=== PATIENT | male | born 1950 | race Caucasian/White ===

== ENCOUNTER 2018-01-02 11:11 | Emergency (ER) | payer MEDICARE, OTHER ==
[~2018-01-02] VITALS: Ht 180.3 cm; Wt 108.9 kg
[2018-01-02] MEDS ORDERED: AMLO10 PO (11:47)
[2018-01-02] MEDS ORDERED: HYDCHL25 PO (11:47)
[2018-01-02] MEDS ORDERED: Multivitamin1 EAC2 PO (11:48)
[2018-01-02] MEDS ORDERED: ATOR40TA PO (11:48)
[2018-01-02] MEDS ORDERED: VALSARTAN160 MG PO (11:48)
[2018-01-02] MEDS ORDERED: Zofran Odt4 MG SL (14:05)
[2018-01-02] MEDS ORDERED: Norco 5-325 Ta1 EACH PO (14:05)
== END 2018-01-02 14:43 | disposition home or self-care (01) ==
LOC: ER 11:11
DX: S22.41XA Multiple fractures of ribs, right side, initial encounter for closed fracture (principal); I10 Essential (primary) hypertension; E78.00 Pure hypercholesterolemia, unspecified; Z87.891 Personal history of nicotine dependence; Z88.0 Allergy status to penicillin; Z79.899 Other long term (current) drug therapy; W18.09XA Striking against other object with subsequent fall, initial encounter
CPT/HCPCS: 71101; 71250; 99284

== ENCOUNTER 2019-07-29 17:30 | Observation (INO) | payer MEDICARE, OTHER ==
[~2019-07-29] VITALS: Ht 180.3 cm; Wt 103.4 kg
[~2019-07-29 17:30] MED LIST: AMLO10 PO; ATOR40TA PO; Amox Tr-K Clv1 EAC2 PO; CHOL10002 PO; Fish Oil 10001000 MG PO; HYDCHL25 PO; LORA1 PO; METO25ER PO; Multivitamin1 EAC2 PO; Norco 5-325 Ta1 EACH PO; Omeprazole20 M1 PO; POLY500 PO; Super B Comple150 MG PO; VALSARTAN160 MG PO; VITAMIN B12-FO1 EACH PO; VOLTAREN GEL 1% TOP; Zofran Odt4 MG SL
[2019-07-29 18:57] LABS: BASOPHILS ABSOLUTE AUTO 0.06 K/mm3 (0.00-0.23); BASOPHILS PERCENT AUTO 0 % (0-2); EOSINOPHILS ABSOLUTE AUTO 0.28 K/mm3 (0.00-0.68); EOSINOPHILS PERCENT AUTO 2 % (0-6); Hematocrit 45.1 % (37.0-53.0); Hemoglobin 14.5 g/dL (13.5-17.5); IMMATURE GRAN ABSOLUTE AUTO 0.08 K/mm3 (0.00-0.10); IMMATURE GRAN PERCENT AUTO 1 % (0-1); LYMPHOCYTES ABSOLUTE AUTO 2.06 K/mm3 (0.84-5.20); LYMPHOCYTES PERCENT AUTO 14 % (21-46); MONOCYTES ABSOLUTE AUTO 1.03 K/mm3 (0.16-1.47); MONOCYTES PERCENT AUTO 7 % (4-13); Mean Corpuscular HGB 27.9 pg (26.0-34.0); Mean Corpuscular HGB Conc 32.2 g/dL (31.5-36.5); Mean Corpuscular Volume 87 fL (80-100); Mean Platelet Volume 10.3 fL (9.1-12.4); NEUTROPHILS ABSOLUTE AUTO 11.31 K/mm3 (1.96-9.15); NEUTROPHILS PERCENT AUTO 76 % (41-73); Platelet Count 233 K/mm3 (150-400); RDW Coefficient Variation 13.2 % (11.7-14.2); RDW Standard Deviation 41.8 fL (35.1-46.3); Red Blood Cell Count 5.19 M/mm3 (4.30-5.90); White Blood Cell Count 14.82 K/mm3 (4.00-11.30)
[2019-07-29 19:16] LABS: International Normalized Ratio 1.03; Prothrombin Time Results 10.9 Sec (9.7-11.5)
[2019-07-29 19:21] LABS: Alanine Aminotransfer (ALT/SGP 40 U/L (12-78); Alk Phos 65 U/L (50-136); Anion Gap 7 mmol/L (6-16); Aspartate Aminotrans (AST/SGOT 35 U/L (12-37); Bilirubin, Total 0.6 mg/dL (0.1-1.0); Blood Urea Nitrogen 18 mg/dL (8-24); Bun/Creatinine Ratio 15.4 (12.0-20.0); CO2, Blood 26 mmol/L (21-32); Chloride, Blood 105 mmol/L (98-108); Creatinine, Blood 1.17 mg/dL (0.60-1.20); Globulin, Blood 3.9 g/dL (2.2-4.0); Glomerular Filtration Rate >60 (60-); Glucose, Blood 143 mg/dL (70-99); Potassium, Blood 3.6 mmol/L (3.5-5.5); Sodium, Blood 138 mmol/L (136-145); Total Protein, Blood 7.9 g/dL (6.4-8.2)
[2019-07-29] MEDS ORDERED: LOSARTAN POTAS100 MG PO (21:39)
[2019-07-29] MEDS ORDERED: Aspirin EC81 MG PO (21:54)
[2019-07-29] MEDS ORDERED: Vitamin D2000 UNIT PO (21:55)
[2019-07-29] MEDS ORDERED: CYAN500 PO (21:55)
[2019-07-29] MEDS ORDERED: Fish Oil Conc1000 MG PO (21:55)
[2019-07-30 05:05] LABS: BASOPHILS ABSOLUTE AUTO 0.02 K/mm3 (0.00-0.23); BASOPHILS PERCENT AUTO 0 % (0-2); EOSINOPHILS PERCENT AUTO 0 % (0-6); Hemoglobin 12.9 g/dL (13.5-17.5); IMMATURE GRAN ABSOLUTE AUTO 0.05 K/mm3 (0.00-0.10); IMMATURE GRAN PERCENT AUTO 0 % (0-1); LYMPHOCYTES PERCENT AUTO 8 % (21-46); MONOCYTES ABSOLUTE AUTO 0.84 K/mm3 (0.16-1.47); MONOCYTES PERCENT AUTO 7 % (4-13); Mean Corpuscular HGB 27.9 pg (26.0-34.0); Mean Corpuscular HGB Conc 32.3 g/dL (31.5-36.5); Mean Corpuscular Volume 86 fL (80-100); Mean Platelet Volume 10.4 fL (9.1-12.4); NEUTROPHILS ABSOLUTE AUTO 10.03 K/mm3 (1.96-9.15); NEUTROPHILS PERCENT AUTO 84 % (41-73); Platelet Count 232 K/mm3 (150-400); RDW Coefficient Variation 13.6 % (11.7-14.2); RDW Standard Deviation 42.5 fL (35.1-46.3); Red Blood Cell Count 4.63 M/mm3 (4.30-5.90); White Blood Cell Count 11.94 K/mm3 (4.00-11.30)
[2019-07-30 05:27] LABS: Anion Gap 7 mmol/L (6-16); Blood Urea Nitrogen 23 mg/dL (8-24); Bun/Creatinine Ratio 20.2 (12.0-20.0); CO2, Blood 26 mmol/L (21-32); Calcium, Blood 8.6 mg/dL (8.5-10.1); Chloride, Blood 105 mmol/L (98-108); Creatinine, Blood 1.14 mg/dL (0.60-1.20); Glomerular Filtration Rate >60 (60-); Glucose, Blood 145 mg/dL (70-99); Potassium, Blood 4.2 mmol/L (3.5-5.5); Sodium, Blood 138 mmol/L (136-145)
--- NOTE | 2019-07-30 07:08 | NUR ---
SUMMARY PT SLEPT IN RECLINER HAIR FOR IMPROVED COMFORT. NO C/O SOB. VERB IV SUBLIMAZE EFFECTIVE FOR PAIN CONTROL. VOIDING WITHOUT DIFFICULTY. PT HOPING FOR DISCHAGE HOME TODAY. AT BEDSIDE. SUPPORTIVE.
--- NOTE | 2019-07-30 10:43 | NUR ---
1000 PATIENT REPORTS SLIGHT NUMBNESS TO LEFT HAND POINTER AND MIDDLE FINGER, SHANNEN WRAP LOOSENED AND REAPPLIED WITH RESOLUTION OF NUMBNESS
[2019-07-30] MEDS ORDERED: ACET325 PO (15:11)
[2019-07-30] MEDS ORDERED: DOCU100 PO (15:12)
[2019-07-30] MEDS ORDERED: HYDR1TAB94 PO (15:13)
--- NOTE | 2019-07-30 15:47 | NUR ---
1545 DISCHARGE DISCHARGE TO HOME WITH . PATIENT INSISTENT HE WILL WALK OUT OF HOSPITAL TO CAR AND DECLINES MY OFFER OF A WHEELCHAIR RIDE TO HIS CAR
== END 2019-07-30 15:45 | disposition home or self-care (01) ==
LOC: ER 17:30 → SURS 17:31
PROVIDERS: Physician Assistant; ADMIT Surgery
DX: S22.43XA Multiple fractures of ribs, bilateral, initial encounter for closed fracture (principal); S42.112A Displaced fracture of body of scapula, left shoulder, initial encounter for closed fracture; S32.018A Other fracture of first lumbar vertebra, initial encounter for closed fracture; S32.028A Other fracture of second lumbar vertebra, initial encounter for closed fracture; S01.01XA Laceration without foreign body of scalp, initial encounter; I10 Essential (primary) hypertension; E78.00 Pure hypercholesterolemia, unspecified; Z88.0 Allergy status to penicillin; Z79.899 Other long term (current) drug therapy; Z79.82 Long term (current) use of aspirin; Z87.891 Personal history of nicotine dependence; W11.XXXA Fall on and from ladder, initial encounter
CPT/HCPCS: 12001; 29125; 36415; 70450; 71260; 72125; 73030; 73110; 74177; 80048; 80053; 83690; 85025; 85610; 86850; 86900; 86901; 93005; 93010; 96374-59; 96375-59; 99285-25; A9270-GY; J1650; J1885; J2405; J3010; J7120; L0160; Q9967

== ENCOUNTER 2019-08-17 05:41 | Emergency (ER) | payer MEDICARE, OTHER ==
[~2019-08-17] VITALS: Ht 177.8 cm; Wt 104.3 kg
[~2019-08-17 05:41] MED LIST changes: +ACET325 PO; +Aspirin EC81 MG PO; +CYAN500 PO; +DOCU100 PO; +Fish Oil Conc1000 MG PO; +HYDR1TAB94 PO; +LOSARTAN POTAS100 MG PO; +Vitamin D2000 UNIT PO
[2019-08-17] MEDS ORDERED: ALBU90OI (06:07)
[2019-08-17 06:20] LABS: BASOPHILS ABSOLUTE AUTO 0.07 K/mm3 (0.00-0.23); BASOPHILS PERCENT AUTO 1 % (0-2); EOSINOPHILS ABSOLUTE AUTO 0.36 K/mm3 (0.00-0.68); EOSINOPHILS PERCENT AUTO 5 % (0-6); Hematocrit 38.3 % (37.0-53.0); Hemoglobin 12.4 g/dL (13.5-17.5); IMMATURE GRAN ABSOLUTE AUTO 0.02 K/mm3 (0.00-0.10); IMMATURE GRAN PERCENT AUTO 0 % (0-1); LYMPHOCYTES ABSOLUTE AUTO 2.07 K/mm3 (0.84-5.20); LYMPHOCYTES PERCENT AUTO 26 % (21-46); MONOCYTES ABSOLUTE AUTO 0.67 K/mm3 (0.16-1.47); MONOCYTES PERCENT AUTO 9 % (4-13); Mean Corpuscular HGB 28.5 pg (26.0-34.0); Mean Corpuscular HGB Conc 32.4 g/dL (31.5-36.5); Mean Corpuscular Volume 88 fL (80-100); Mean Platelet Volume 9.2 fL (9.1-12.4); NEUTROPHILS ABSOLUTE AUTO 4.72 K/mm3 (1.96-9.15); NEUTROPHILS PERCENT AUTO 60 % (41-73); Platelet Count 334 K/mm3 (150-400); RDW Coefficient Variation 13.3 % (11.7-14.2); RDW Standard Deviation 43.5 fL (35.1-46.3); Red Blood Cell Count 4.35 M/mm3 (4.30-5.90); White Blood Cell Count 7.91 K/mm3 (4.00-11.30)
[2019-08-17 06:42] LABS: Alanine Aminotransfer (ALT/SGP 26 U/L (12-78); Albumin, Blood 3.3 g/dL (3.4-5.0); Albumin/Globulin Ratio 0.8 (0.8-1.8); Alk Phos 182 U/L (50-136); Anion Gap 6 mmol/L (6-16); Aspartate Aminotrans (AST/SGOT 14 U/L (12-37); Bilirubin, Total 0.5 mg/dL (0.1-1.0); Blood Urea Nitrogen 18 mg/dL (8-24); CO2, Blood 28 mmol/L (21-32); Calcium, Blood 8.7 mg/dL (8.5-10.1); Chloride, Blood 107 mmol/L (98-108); Globulin, Blood 4.1 g/dL (2.2-4.0); Glomerular Filtration Rate >60 (60-); Glucose, Blood 114 mg/dL (70-99); Potassium, Blood 3.9 mmol/L (3.5-5.5); Sodium, Blood 141 mmol/L (136-145); Total Protein, Blood 7.4 g/dL (6.4-8.2); Troponin I <0.015 ng/mL (0.000-0.040)
[2019-08-17] MEDS ORDERED: Zithromax250 MG PO ×2 (07:30→07:35)
== END 2019-08-17 07:44 | disposition home or self-care (01) ==
LOC: ER 05:41
PROVIDERS: Emergency Medicine
DX: J20.9 Acute bronchitis, unspecified (principal); M79.89 Other specified soft tissue disorders; I10 Essential (primary) hypertension; J44.9 Chronic obstructive pulmonary disease, unspecified; D64.9 Anemia, unspecified; Z87.891 Personal history of nicotine dependence; Z88.0 Allergy status to penicillin; Z79.899 Other long term (current) drug therapy; Z79.82 Long term (current) use of aspirin
CPT/HCPCS: 36415; 71046; 80053; 84484; 85025; 93005; 93010; 93971; 99285-25

== ENCOUNTER 2020-03-22 08:47 | Inpatient (IN) | payer MEDICARE, OTHER ==
[~2020-03-22] VITALS: Ht 180.3 cm; Wt 106.1 kg
[~2020-03-22 08:47] MED LIST changes: +ALBU90OI; -AMLO10 PO; -ATOR40TA PO; -Aspirin EC81 MG PO; -CHOL10002 PO; -Fish Oil Conc1000 MG PO; -HYDCHL25 PO; -LORA1 PO; -LOSARTAN POTAS100 MG PO; +Zithromax250 MG PO
[2020-03-22 09:29] LABS: BASOPHILS ABSOLUTE AUTO 0.07 K/mm3 (0.00-0.23); BASOPHILS PERCENT AUTO 1 % (0-2); EOSINOPHILS ABSOLUTE AUTO 0.33 K/mm3 (0.00-0.68); EOSINOPHILS PERCENT AUTO 4 % (0-6); Hematocrit 46.4 % (37.0-53.0); IMMATURE GRAN ABSOLUTE AUTO 0.03 K/mm3 (0.00-0.10); IMMATURE GRAN PERCENT AUTO 0 % (0-1); LYMPHOCYTES ABSOLUTE AUTO 2.15 K/mm3 (0.84-5.20); LYMPHOCYTES PERCENT AUTO 25 % (21-46); MONOCYTES ABSOLUTE AUTO 0.62 K/mm3 (0.16-1.47); MONOCYTES PERCENT AUTO 7 % (4-13); Mean Corpuscular HGB 28.1 pg (26.0-34.0); Mean Corpuscular HGB Conc 32.3 g/dL (31.5-36.5); Mean Corpuscular Volume 87 fL (80-100); Mean Platelet Volume 10.3 fL (9.1-12.4); NEUTROPHILS ABSOLUTE AUTO 5.26 K/mm3 (1.96-9.15); NEUTROPHILS PERCENT AUTO 62 % (41-73); Platelet Count 239 K/mm3 (150-400); RDW Coefficient Variation 13.2 % (11.7-14.2); RDW Standard Deviation 41.9 fL (35.1-46.3); Red Blood Cell Count 5.33 M/mm3 (4.30-5.90); White Blood Cell Count 8.46 K/mm3 (4.00-11.30)
[2020-03-22 09:45] LABS: Alanine Aminotransfer (ALT/SGP 34 U/L (12-78); Albumin, Blood 3.6 g/dL (3.4-5.0); Albumin/Globulin Ratio 0.8 (0.8-1.8); Alk Phos 76 U/L (50-136); Anion Gap 5 mmol/L (6-16); Aspartate Aminotrans (AST/SGOT 27 U/L (12-37); Bilirubin, Total 0.8 mg/dL (0.1-1.0); Blood Urea Nitrogen 15 mg/dL (8-24); Bun/Creatinine Ratio 16.2 (12.0-20.0); CO2, Blood 28 mmol/L (21-32); Calcium, Blood 8.7 mg/dL (8.5-10.1); Chloride, Blood 106 mmol/L (98-108); Creatinine, Blood 0.92 mg/dL (0.60-1.20); Globulin, Blood 4.3 g/dL (2.2-4.0); Glomerular Filtration Rate >60 (60-); Glucose, Blood 117 mg/dL (70-99); Sodium, Blood 139 mmol/L (136-145); Total Protein, Blood 7.9 g/dL (6.4-8.2); Troponin I <0.015 ng/mL (0.000-0.040)
[2020-03-22] MEDS ORDERED: HYDCHL25 PO (12:42)
[2020-03-22] MEDS ORDERED: AMLO5 PO (12:42)
[2020-03-22] MEDS ORDERED: LOSARTAN POTAS100 MG PO (12:42)
[2020-03-22] MEDS ORDERED: ATOR40TA PO (12:42)
[2020-03-22] MEDS ORDERED: FISH OIL CONC1000 M2 PO (13:28)
[2020-03-22] MEDS ORDERED: LORA1 PO (13:28)
[2020-03-22] MEDS ORDERED: Aspirin EC81 MG PO (13:28)
[2020-03-22] MEDS ORDERED: VITAMIN D350 MC2 PO (13:28)
[2020-03-22] MEDS ORDERED: Daily Multiple1 EACH PO (13:29)
== END 2020-03-22 17:42 | disposition home or self-care (01) | DRG 313 ==
LOC: ER 08:47 → PCU 08:48
PROVIDERS: Physician Assistant; ADMIT Hospitalist
DX: R07.89 Other chest pain (principal); R94.31 Abnormal electrocardiogram [ECG] [EKG]; I10 Essential (primary) hypertension; J44.9 Chronic obstructive pulmonary disease, unspecified; E78.00 Pure hypercholesterolemia, unspecified; E78.5 Hyperlipidemia, unspecified; G47.33 Obstructive sleep apnea (adult) (pediatric); I25.10 Atherosclerotic heart disease of native coronary artery without angina pectoris; Z88.0 Allergy status to penicillin; Z79.82 Long term (current) use of aspirin; Z79.899 Other long term (current) drug therapy
CPT/HCPCS: 36415; 71046; 80053; 83880; 84484; 85025; 93005; 93010; 99285-25

== ENCOUNTER → 2020-05-18 | Outpatient (CLI) | payer MEDICARE, OTHER ==
[~2020-05-18] MED LIST changes: +AMLO5 PO; +ATOR40TA PO; +Aspirin EC81 MG PO; +Daily Multiple1 EACH PO; +FISH OIL CONC1000 M2 PO; +HYDCHL25 PO; +LORA1 PO; +LOSARTAN POTAS100 MG PO; +VITAMIN D350 MC2 PO
== END | disposition home or self-care (01) ==
LOC: PLD 07:13 → LAB SHORT 07:13
DX: D11.0 Benign neoplasm of parotid gland (principal)
CPT/HCPCS: 88173

== ENCOUNTER 2024-06-01 09:54 | Emergency (ER) | payer MEDICARE, OTHER ==
[~2024-06-01] VITALS: Ht 180.3 cm; Wt 98.4 kg
[2024-06-01 10:27] LABS: BASOPHILS ABSOLUTE AUTO 0.07 K/mm3 (0.00-0.23); BASOPHILS PERCENT AUTO 1 % (0-2); EOSINOPHILS ABSOLUTE AUTO 0.31 K/mm3 (0.00-0.68); EOSINOPHILS PERCENT AUTO 4 % (0-6); Hematocrit 45.7 % (37.0-53.0); Hemoglobin 14.9 g/dL (13.5-17.5); IMMATURE GRAN ABSOLUTE AUTO 0.02 K/mm3 (0.00-0.10); IMMATURE GRAN PERCENT AUTO 0 % (0-1); LYMPHOCYTES ABSOLUTE AUTO 2.33 K/mm3 (0.84-5.20); LYMPHOCYTES PERCENT AUTO 30 % (21-46); MONOCYTES ABSOLUTE AUTO 0.55 K/mm3 (0.16-1.47); MONOCYTES PERCENT AUTO 7 % (4-13); Mean Corpuscular HGB 28.3 pg (26.0-34.0); Mean Corpuscular HGB Conc 32.6 g/dL (31.5-36.5); Mean Corpuscular Volume 87 fL (80-100); Mean Platelet Volume 10.1 fL (9.1-12.4); NEUTROPHILS ABSOLUTE AUTO 4.62 K/mm3 (1.96-9.15); NEUTROPHILS PERCENT AUTO 58 % (41-73); Platelet Count 229 K/mm3 (150-400); RDW Coefficient Variation 13.8 % (11.7-14.2); RDW Standard Deviation 44.2 fL (35.1-46.3); Red Blood Cell Count 5.26 M/mm3 (4.30-5.90)
[2024-06-01] MEDS ORDERED: TAMSULOSIN HCL0.4 M1 PO (10:35)
[2024-06-01] MEDS ORDERED: OMEP20ER PO (10:35)
[2024-06-01] MEDS ORDERED: MERIBIN5 MG PO (10:36)
[2024-06-01] MEDS ORDERED: VITAMIN D310 MC4 (10:36)
[2024-06-01] MEDS ORDERED: VITAMIN B12500 MCG (10:36)
[2024-06-01 10:42] LABS: Albumin, Blood 3.4 g/dL (3.4-5.0); Albumin/Globulin Ratio 0.8 (0.8-1.8); Bilirubin, Total 0.6 mg/dL (0.1-1.0); Calcium, Blood 8.9 mg/dL (8.5-10.1); Creatinine, Blood 1.13 mg/dL (0.60-1.20); Globulin, Blood 4.4 g/dL (2.2-4.0); Potassium, Blood 3.6 mmol/L (3.5-5.5); Total Protein, Blood 7.8 g/dL (6.4-8.2)
[2024-06-01] MEDS ORDERED: NS 500 ML IV SCH (10:55)
[2024-06-01 12:25] LABS: Influenza A, PCR NEGATIVE (NEGATIVE); Influenza B, PCR NEGATIVE (NEGATIVE); Resp Syncytial Virus, PCR NEGATIVE (NEGATIVE); SARS-Cov-2 (COVID-19) PCR, MMC NEGATIVE (NEGATIVE)
[2024-06-01 13:06] VITALS: BP 125/80
== END 2024-06-01 13:46 | disposition home or self-care (01) ==
LOC: ER 09:54
PROVIDERS: Physician Assistant; Student in an Organized Health Care Education/Training Program
DX: E86.0 Dehydration (principal); R53.83 Other fatigue; I10 Essential (primary) hypertension; J44.9 Chronic obstructive pulmonary disease, unspecified; E78.00 Pure hypercholesterolemia, unspecified; G47.33 Obstructive sleep apnea (adult) (pediatric); Z87.891 Personal history of nicotine dependence; Z79.899 Other long term (current) drug therapy; Z79.82 Long term (current) use of aspirin; Z88.0 Allergy status to penicillin
CPT/HCPCS: 0241U; 71046; 80053; 83690; 83735; 84484; 85025; 93005; 93010; 93242; 96360; 99285-25; J7030

== ENCOUNTER 2024-11-17 08:33 | Day surgery (SDC) | payer MEDICARE, OTHER ==
[~2024-11-17] VITALS: Ht 180.3 cm; Wt 104.0 kg
[2024-11-17] VITALS (9 sets, daily range): BP systolic 110–191; BP diastolic 71–115
[~2024-11-17 08:33] MED LIST changes: +ALBU90OI INH; +MAGNESIUM OXID400 M2 PO; +MERIBIN5 MG PO; +METO25 PO; +OMEP20ER PO; +TAMSULOSIN HCL0.4 M1 PO; +VITAMIN B12500 MCG; +VITAMIN D310 MC4
[2024-11-17] MEDS ORDERED: Verapamil HCL 2.5 MG/ML 2ML Injection ONE (09:54)
[2024-11-17] MEDS ORDERED: NS 250 ML IV ONE (09:55)
[2024-11-17] MEDS ORDERED: Heparin Sodium 1000 Units/ML 10ML MDV ONE ×2 (09:55→10:09)
[2024-11-17] MEDS ORDERED: Nitroglycerin 2 MG/20 ML BTL ONE (09:55)
[2024-11-17] MEDS ORDERED: NS 1,000 ML IV ONE ×2 (09:55→10:09)
[2024-11-17] MEDS ORDERED: Aspirin 325 MG Tab ONE (10:08)
[2024-11-17] MEDS ORDERED: FentaNYL Citrate 50 MCG/ML 2 ML Injection ONE (10:08)
[2024-11-17] MEDS ORDERED: Midazolam HCl 1MG / ML 2ML Vial ONE (10:09)
--- NOTE | 2024-11-17 11:19 | NUR ---
PT TO RECOVERY FROM LAB. PT A&OX4. RADIAL SITE SOFT AND NON-TENDER PER PT. NO BLEEDING NOTED. PT GIVEN WATER PER REQUEST.
--- NOTE | 2024-11-17 11:40 | NUR ---
PT SITTING UP IN RECLINER WITH FAMILY IN THE ROOM. R RAD TR BAND SITE SOFT NON-TENDER WITH NO HEMATOMA, NO PULSATILE BLEEDING AND RIGHT WRIST BOARD IN PLACE. PT DENIES CHEST PAIN. CALL LIGHT IN REACH.
[2024-11-17] MEDS ORDERED: Aspir 8181 MG PO (11:45)
--- NOTE | 2024-11-17 11:56 | NUR ---
NO CHANGES TO R RAD SITE.
--- NOTE | 2024-11-17 12:23 | NUR ---
2cc removed from tr band. site soft and non-tender per pt. no bleeding noted.
--- NOTE | 2024-11-17 12:48 | NUR ---
13 CC OF AIR REMOVED OVER 15 MIN OUT OF NOW DEFLATED RIGHT TR BAND. R RAD SITE NO HEMATOMA, NO PULSATILE BLEEDING AND RIGHT WRIST BOARD IN PLACE. DISCHARGE INSTRUCTIONS REVIEWED ALL QUESTIONS ANSWERED.
--- NOTE | 2024-11-17 13:39 | NUR ---
DEFLATED RIGHT TR BAND REMOVED AND POLYMEM PLACED OVER R RAD SITE WITH R WRIST BOARD IN PLACE. R RAD SITE STILL SOFT NON-TENDER WITH NO HEMATOMA, NO PULSATILE BLEEDING. DISCHARGE INSTRUCTIONS REVIEWED ALL QUESTIONS ANSWERED. LEFT AC 20 G IV DISCONTINUED WITH INTACT CANNULA. PT ESOCRTED OUT VIA WHEELCHAIR ESCORT.
== END 2024-11-17 15:13 | disposition home or self-care (01) ==
LOC: MHTC 08:33
DX: I25.10 Atherosclerotic heart disease of native coronary artery without angina pectoris (principal); I12.9 Hypertensive chronic kidney disease with stage 1 through stage 4 chronic kidney disease, or unspecified chronic kidney disease; N18.30 Chronic kidney disease, stage 3 unspecified; I48.91 Unspecified atrial fibrillation; J44.9 Chronic obstructive pulmonary disease, unspecified; E78.00 Pure hypercholesterolemia, unspecified; M06.9 Rheumatoid arthritis, unspecified; G47.33 Obstructive sleep apnea (adult) (pediatric); Z87.891 Personal history of nicotine dependence; Z79.899 Other long term (current) drug therapy; Z88.0 Allergy status to penicillin
CPT/HCPCS: 76937; 93458; 99152; A9270; C1769; C1894; J1644; J2250; J3010; J7030; J7050; Q9967